=== PATIENT | female | born 1950 | race Caucasian/White ===

== ENCOUNTER → 2016-11-25 | Outpatient (CLI) | payer MEDICARE, OTHER ==
[2015-09-20 10:55] VITALS: BP 115/47
[~2016-11-25] MED LIST: CITA20TA5 PO; HYDR-963 PO; LEVO50TA5 PO; LOVA20TA2 PO
--- NOTE | 2016-11-25 10:57 | KCIC ---
INDICATION: Neck pain. Multiple injuries in the past several years. Right shoulder and arm pain for a few months. TECHNIQUE: Sagittal T1, sagittal T2, sagittal STIR, axial T2, and axial T2 gradient sequences are provided. No comparison is available. Sagittal T2 sequence was repeated for mild motion. FINDINGS: 3 mm of anterolisthesis is noted at C7-T1. There is no otherwise malalignment. There is no worrisome marrow lesion. There is a probable atypical hemangioma at T2. There is no cord signal abnormality. The cervicomedullary junction is unremarkable. There is cerebellar volume loss, nonspecific, can be associated with certain medications including seizure medications. Consider an MRI brain if further workup is required. Degenerative findings by individual level are as follows: C2-C3: There is a small central protrusion measuring 5 mm at its base in 2 to 3 mm in height. There is no canal or foraminal compromise. C3-C4: There is facet hypertrophy without high-grade canal or foraminal compromise. C4-C5: There is no canal or foraminal compromise. C5-C6: There is a central annular fissure. There is a minimal disc osteophyte complex. Uncinate process spurring and facet hypertrophy are greater on the right. There is no high-grade canal or foraminal compromise. C6-C7: There is buckling of ligamentum flavum and facet hypertrophy with mild left foraminal narrowing. C7-T1: There is 3 mm of anterolisthesis. There is facet hypertrophy which is greater on the left. There is mild left foraminal narrowing. IMPRESSION: 1. Mild degenerative changes in the cervical spine. There is no high-grade canal stenosis. Mild left foraminal narrowing at C6-C7 and C7-T1 is noted. 2. Cerebellar volume loss. This is only partially evaluated on a cervical MRI. Consider MRI brain if further workup is required. Electronically signed by: Arturo Leija MD (11/25/2016 10:54 AM) [facility]-[id number]
== END | disposition home or self-care (01) ==
LOC: KCIC MRI 08:20
PROVIDERS: ATTEND Orthopaedic Surgery
DX: M47.892 Other spondylosis, cervical region (principal); M79.601 Pain in right arm; M25.511 Pain in right shoulder
CPT/HCPCS: 72141

== ENCOUNTER → 2016-12-02 | Outpatient (CLI) | payer MEDICARE, OTHER ==
[2015-09-20 10:55] VITALS: BP 115/47
--- NOTE | 2016-12-02 09:53 | KCIC ---
Examination: CT chest without contrast HISTORY: History of productive cough, back pain COMPARISON: None available Technique: Axial CT images of the chest were performed without contrast. Coronal and sagittal reformats performed Exposure: One or more of the following individualized dose reduction techniques were utilized for this examination: 1. Automated exposure control 2. Adjustment of the mA and/or kV according to patient size 3. Use of iterative reconstruction technique FINDINGS: The visualized thyroid gland grossly appears unremarkable. The central airways are patent. Coronary artery calcifications identified. Mild emphysematous changes identified in the apical lungs. There is a 7 mm nodule identified in the right middle lobe of the lung along the fissure. Minimal right lung base atelectasis. No evidence of pleural effusion or pneumothorax. Mild superior endplate compression changes of the T6, T7 vertebral bodies. The visualized noncontrasted liver, spleen, adrenals grossly appears unremarkable. Moderate aortic atherosclerosis. IMPRESSION: 1. 7 mm solid-appearing pulmonary nodule identified in the right middle lobe of the lung. Follow-up per Fleischner Society guidelines.Follow-up CT at 6-12 months and then at 18-24 months if no change. 2. Emphysematous changes apical lungs. 3. Coronary artery calcifications. 4. Mild superior endplate compression changes of T6, T7 vertebral bodies. Electronically signed by: Heraclio Marcus MD (12/02/2016 9:50 AM) [id number]
== END | disposition home or self-care (01) ==
LOC: KCIC CT 08:11
PROVIDERS: ATTEND Family Medicine
DX: I25.10 Atherosclerotic heart disease of native coronary artery without angina pectoris (principal); I70.0 Atherosclerosis of aorta; J43.8 Other emphysema; R91.1 Solitary pulmonary nodule; R05 Cough; F17.200 Nicotine dependence, unspecified, uncomplicated
CPT/HCPCS: 71250

== ENCOUNTER → 2017-05-26 | Outpatient (CLI) | payer MEDICARE, OTHER | END | disposition home or self-care (01) | LOC: KCIC CT 09:59 | DX: J43.2 Centrilobular emphysema (principal); I25.10 Atherosclerotic heart disease of native coronary artery without angina pectoris; R91.1 Solitary pulmonary nodule; Z72.0 Tobacco use | CPT/HCPCS: 71250 ==

== ENCOUNTER 2018-09-27 07:20 | Emergency (ER) | payer MEDICARE ==
[~2018-09-27] VITALS: Ht 154.9 cm; Wt 54.4 kg
[~2018-09-27 07:20] MED LIST changes: -CITA20TA5 PO; +CITA20TA6 PO; +HYDR-3135 PO; -HYDR-963 PO
--- NOTE | 2018-09-27 08:25 | PHYS DOC ---
Past Medical History Past Medical History: Depression, High Cholesterol, Hypothyroid, Migraines, Other Additional Past Medical Histor: Borderline diabetes - diet controlled (EDDI PERRY) Past Surgical History: Hysterectomy, Tonsillectomy Additional Past Surgical Histo: "Endometriosis surgery" (EDDI PERRY) Alcohol Use: None Drug Use: None (EDDI PERRY) Adult General Chief Complaint Chief Complaint: COUGH HPI HPI Patient is a 68 year old female whom is a pack-a-day smoker for 50 years presents to the ED complaining of chest pain times one week. Patient states that the pain is worse when she wakes up and when she coughs. States she's coughing up green stuff. Describes her pain as sharp. Rates her pain as 8 out of 10. Associated symptoms include shortness of breath. Denies headache, injury, dizz iness, nausea/vomiting, abdominal pain, diarrhea, fever, rash. (EDDI PERRY) Review of Systems Review of Systems Constitutional: Denies fever or chills [] Eyes: Denies change in visual acuity, redness, or eye pain [] HENT: Denies nasal congestion or sore throat [] Respiratory: Complains of cough and shortness of breath.[] Cardiovascular: No additional information not addressed in HPI [] GI: Denies abdominal pain, nausea, vomiting, bloody stools or diarrhea [] : Denies dysuria or hematuria [] Musculoskeletal: Complains of neck pain. Denies back pain or joint pain [] Integument: Denies rash or skin lesions [] Neurologic: Denies headache, focal weakness or sensory changes [] All other systems were reviewed and found to be within normal limits, except as documented in this note. (EDDI PERRY) Current Medications Current Medications Current Medications Medications (Trade) Dose Ordered Sig/Rdaha Start Time Stop Time Status Last Admin Dose Admin Albuterol/ Ipratropium (Duoneb) 3 ml 1X ONCE 09/27/18 08:30 09/27/18 08:31 DC 09/27/18 08:38 3 ML Info (CONTRAST GIVEN -- Rx MONITORING) 1 each PRN DAILY PRN 09/27/18 10:15 09/27/18 11:22 DC Iohexol (Omnipaque 350 Mg/ml) 100 ml 1X ONCE 09/27/18 10:00 09/27/18 10:01 DC 09/27/18 10:21 100 ML Methylprednisolone Sodium Succinate (SOLU-Medrol 125MG VIAL) 125 mg 1X ONCE 09/27/18 08:30 09/27/18 08:31 DC 09/27/18 09:38 125 MG Morphine Sulfate (Morphine Sulfate) 4 mg 1X ONCE 09/27/18 10:00 09/27/18 10:01 DC 09/27/18 10:08 4 MG Ondansetron HCl (Zofran) 4 mg 1X ONCE 09/27/18 10:00 09/27/18 10:01 DC 09/27/18 10:08 4 MG (ALDO CURTIS MD) Allergies Allergies Allergies Coded Allergies Type Severity Reaction Last Updated Verified erythromycin base Adverse Reaction Intermediate Nausea and Vomiting 09/20/15 Yes (ALDO CURTIS MD) Physical Exam Physical Exam Constitutional: Well developed, well nourished, no acute distress, non-toxic appearance. [] HENT: Normocephalic, atraumatic, bilateral external ears normal, oropharynx moist, no oral exudates, nose normal. [] Eyes: PERRLA, EOMI, conjunctiva normal, no discharge. [] Neck: Normal range of motion, no tenderness, supple, no stridor. [] Cardiovascular:Heart rate regular rhythm, no murmur [] Lungs & Thorax: Mild wheezing bilaterally.[] Abdomen: Bowel sounds normal, soft, no tenderness, no masses, no pulsatile masses. [] Skin: Warm, dry, no erythema, no rash. [] Back: No tenderness, no CVA tenderness. [] Extremities: No tenderness, no cyanosis, no clubbing, ROM intact, no edema. [] Neurologic: Alert and oriented X 3, normal motor function, normal sensory function, no focal deficits noted. [] Psychologic: Affect normal, judgement normal, mood normal. [] (EDDI PERRY) Current Patient Data Vital Signs Vital Signs Date Time Temp Pulse Resp B/P (MAP) Pulse Ox O2 Delivery O2 Flow Rate FiO2 09/27/18 10:46 77 20 122/73 (89) 96 Room Air 09/27/18 07:40 98.5 98.5 (ALDO CURTIS MD) Lab Values Laboratory Tests Test 09/27/18 08:55 White Blood Count 11.4 x10^3/uL (4.0-11.0) H Red Blood Count 4.11 x10^6/uL (3.50-5.40) Hemoglobin 13.2 g/dL (12.0-15.5) Hematocrit 38.9 % (36.0-47.0) Mean Corpuscular Volume 95 fL (79-100) Mean Corpuscular Hemoglobin 32 pg (25-35) Mean Corpuscular Hemoglobin Concent 34 g/dL (31-37) Red Cell Distribution Width 13.7 % (11.5-14.5) Platelet Count 230 x10^3/uL (140-400) Neutrophils (%) (Auto) 76 % (31-73) H Lymphocytes (%) (Auto) 16 % (24-48) L Monocytes (%) (Auto) 6 % (0-9) Eosinophils (%) (Auto) 1 % (0-3) Basophils (%) (Auto) 1 % (0-3) Neutrophils # (Auto) 8.7 x10^3/uL (1.8-7.7) H Lymphocytes # (Auto) 1.8 x10^3/uL (1.0-4.8) Monocytes # (Auto) 0.7 x10^3/uL (0.0-1.1) Eosinophils # (Auto) 0.1 x10^3/uL (0.0-0.7) Basophils # (Auto) 0.1 x10^3/uL (0.0-0.2) D-Dimer (Zoie) 0.70 ug/mlFEU (0.00-0.50) H Sodium Level 139 mmol/L (136-145) Potassium Level 4.1 mmol/L (3.5-5.1) Chloride Level 103 mmol/L (98-107) Carbon Dioxide Level 25 mmol/L (21-32) Anion Gap 11 (6-14) Blood Urea Nitrogen 10 mg/dL (7-20) Creatinine 0.9 mg/dL (0.6-1.0) Estimated GFR (Cockcroft-Gault) 62.5 BUN/Creatinine Ratio 11 (6-20) Glucose Level 130 mg/dL (70-99) H Calcium Level 9.2 mg/dL (8.5-10.1) Total Bilirubin 0.3 mg/dL (0.2-1.0) Aspartate Amino Transferase (AST) 15 U/L (15-37) Alanine Aminotransferase (ALT) 12 U/L (14-59) L Alkaline Phosphatase 83 U/L (46-116) Troponin I Quantitative < 0.017 ng/mL (0.000-0.055) BB-Iam-X-Type Natriuretic Peptide 594 pg/mL (0-124) H Total Protein 8.3 g/dL (6.4-8.2) H Albumin 3.4 g/dL (3.4-5.0) Albumin/Globulin Ratio 0.7 (1.0-1.7) L Lipase 134 U/L (73-393) Thyroid Stimulating Hormone (TSH) 0.641 uIU/mL (0.358-3.74) Laboratory Tests 09/27/18 08:55 Laboratory Tests 09/27/18 08:55 (ALDO CURTIS MD) Lab Values Laboratory Tests Test 09/27/18 08:55 White Blood Count 11.4 x10^3/uL (4.0-11.0) H Red Blood Count 4.11 x10^6/uL (3.50-5.40) Hemoglobin 13.2 g/dL (12.0-15.5) Hematocrit 38.9 % (36.0-47.0) Mean Corpuscular Volume 95 fL (79-100) Mean Corpuscular Hemoglobin 32 pg (25-35) Mean Corpuscular Hemoglobin Concent 34 g/dL (31-37) Red Cell Distribution Width 13.7 % (11.5-14.5) Platelet Count 230 x10^3/uL (140-400) Neutrophils (%) (Auto) 76 % (31-73) H Lymphocytes (%) (Auto) 16 % (24-48) L Monocytes (%) (Auto) 6 % (0-9) Eosinophils (%) (Auto) 1 % (0-3) Basophils (%) (Auto) 1 % (0-3) Neutrophils # (Auto) 8.7 x10^3/uL (1.8-7.7) H Lymphocytes # (Auto) 1.8 x10^3/uL (1.0-4.8) Monocytes # (Auto) 0.7 x10^3/uL (0.0-1.1) Eosinophils # (Auto) 0.1 x10^3/uL (0.0-0.7) Basophils # (Auto) 0.1 x10^3/uL (0.0-0.2) D-Dimer (Zoie) 0.70 ug/mlFEU (0.00-0.50) H Sodium Level 139 mmol/L (136-145) Potassium Level 4.1 mmol/L (3.5-5.1) Chloride Level 103 mmol/L (98-107) Carbon Dioxide Level 25 mmol/L (21-32) Anion Gap 11 (6-14) Blood Urea Nitrogen 10 mg/dL (7-20) Creatinine 0.9 mg/dL (0.6-1.0) Estimated GFR (Cockcroft-Gault) 62.5 BUN/Creatinine Ratio 11 (6-20) Glucose Level 130 mg/dL (70-99) H Calcium Level 9.2 mg/dL (8.5-10.1) Total Bilirubin 0.3 mg/dL (0.2-1.0) Aspartate Amino Transferase (AST) 15 U/L (15-37) Alanine Aminotransferase (ALT) 12 U/L (14-59) L Alkaline Phosphatase 83 U/L (46-116) Troponin I Quantitative < 0.017 ng/mL (0.000-0.055) CL-Tky-U-Type Natriuretic Peptide 594 pg/mL (0-124) H Total Protein 8.3 g/dL (6.4-8.2) H Albumin 3.4 g/dL (3.4-5.0) Albumin/Globulin Ratio 0.7 (1.0-1.7) L Lipase 134 U/L (73-393) Thyroid Stimulating Hormone (TSH) 0.641 uIU/mL (0.358-3.74) Laboratory Tests 09/27/18 08:55 Laboratory Tests 09/27/18 08:55 (EDDI PERRY) EKG EKG []EKG shows NSR at 67 BPM. No Stemi. (EDDI PERRY) Radiology/Procedures Radiology/Procedures PROCEDURE: CERVICAL SPINE 2-3V EXAM: AP and lateral views of the cervical spine DATE: 09/27/2018 8:22 AM CLINICAL HISTORY: COMPARISON: None available. FINDINGS: On the lateral view, the cervical spine is imaged from the skull base to C7. Vertebral body heights are preserved. Decreased bone mineral density. Intervertebral disc heights are preserved. Mild facet degenerative change 5 6 and below. No spondylolisthesis. Normal predental space. No significant prevertebral soft tissue swelling. IMPRESSION: 1. No evidence for acute fracture or subluxation within the constraints of osteopenia. 2. Multilevel degenerative changes particularly of the facet joints. [] PROCEDURE: CHEST AP ONLY EXAM: AP View of the chest DATE: 09/27/2018 8:22 AM INDICATION: pain,cough and pain that radiates into chest COMPARISON: No Prior FINDINGS: The heart is not enlarged. Aortic calcifications are seen. Mediastinal and hilar contours are normal. No focal parenchymal airspace opacity. No pleural effusion or pneumothorax. IMPRESSION: Mild emphysematous change. No evidence for acute cardiopulmonary process. PROCEDURE: CT ANGIOGRAPHY CHEST CT Angio chest 09/27/2018 9:53 AM Indication: Shortness of breath. Chest pain Technique: Multiple contiguous axial images were obtained through the chest after administration of intravenous iodinated contrast. Coronal, sagittal, and 3-D MIP reformations were created. Comparison: Chest CT without contrast May 26, 2017 Findings: There is no filling defect within central pulmonary arteries or evidence of acute pulmonary embolism. Heart size is normal. No pericardial effusion is appreciated. No pathologically enlarged mediastinal lymph nodes are seen. , The thoracic aorta is grossly normal in course and contour. Centrilobular emphysema again noted. There is no pneumothorax or pleural effusion. No acute infiltrates are seen. There is a new 8 mm nodule in the left upper lobe partially obscured by artifact from dense contrast within left subclavian vein (axial image 31). Mild dependent atelectasis is seen bilaterally. Mild bronchiectasis is noted involving the lung bases. Triangular nodule along the right minor fissure is similar to comparison study, most likely an intrapulmonary lymph node. Limited visualization of the upper abdomen demonstrates no acute abnormality. Chronic appearing compression deformities of the T6 and T7 vertebra noted. No acute osseous abnormalities are appreciated. IMPRESSION: 1. No evidence of acute pulmonary embolism 2. New 8 mm noncalcified nodule, left upper lobe. Follow-up CT 3 months recommended. 3. Centrilobular emphysema and changes of COPD (EDDI PERRY) Course & Med Decision Making Course & Med Decision Making Pertinent Labs and Imaging studies reviewed. (See chart for details) []Discussed lab and imaging findings with patient. Patient's neck pain improved in the ED. States she's had much better. Patient has COPD. Patient well appearing on red-exam, states she is feeling much better. Patient's oxygen saturation in the ED is 96%. Patient is on no oxygen. Patient is not tachypneic or tachycardic. Negative CTA for PE. We'll treat outpatient with a short course of prednisone and Pro Air inhaler. Discussed follow-up with her PCP this week for reevaluation. Discussed reasons to return to the ED. Patient understands and agrees with plan. (EDDI PERRY) Course & Med Decision Making ER physician attending note: In reviewing the patient's chart, I did notice that there is no documentation that the patient was explicitly informed about the lung nodule on CT, and the need for follow-up in 3 months. I will contact the patient this morning, to ensure that she is aware of the need for repeat imaging to rule out more serious etiology of this lung nodule. (ALDO CURTIS MD) Dragon Disclaimer Dragon Disclaimer This electronic medical record was generated, in whole or in part, using a voice recognition dictation system. (EDDI PERRY) Departure Departure Impression: Primary Impression: COPD (chronic obstructive pulmonary disease) Additional Impression: Cervical pain Disposition: HOME, SELF-CARE Condition: IMPROVED Referrals: VINOD AU MD (PCP) Patient Instructions: Arthritis, Nonspecific, Chronic Obstructive Pulmonary Disease Scripts Azithromycin (AZITHROMYCIN TABLET) 250 Mg Tablet 1 PKG PO UD, #6 TAB Prov: EDDI PERRY 09/27/18 Albuterol Sulfate (Proair Hfa) 8.5 Gm Hfa.aer.ad 1 PUFF INH PRN Q6HRS PRN for SHORTNESS OF BREATH, #1 INHALER Prov: EDDI PERRY 09/27/18 Prednisone (PREDNISONE) 50 Mg Tablet 1 TAB PO DAILY for 5 Days, #5 TAB Prov: EDDI PERRY 09/27/18 Tramadol Hcl (TRAMADOL HCL) 50 Mg Tablet 50 MG PO Q4HRS PRN for PAIN, #12 TAB Prov: EDDI PERRY 09/27/18 Problem Qualifiers EDDI PERRY Sep 27, 2018 08:25 ALDO CURTIS MD Sep 28, 2018 07:25
[2018-09-27] MEDS ORDERED: methylPREDNISolone SOD SUCC PF 125 MG/2 ML VIAL. IV ONE (08:30)
[2018-09-27] MEDS ORDERED: IPRATRPIUM/ALBUTEROL 0.5/2.5MG 3 ML NEBU. NEB ONE (08:30)
--- NOTE | 2018-09-27 08:55 | RAD ---
EXAM: AP View of the chest DATE: 09/27/2018 8:22 AM INDICATION: pain,cough and pain that radiates into chest COMPARISON: No Prior FINDINGS: The heart is not enlarged. Aortic calcifications are seen. Mediastinal and hilar contours are normal. No focal parenchymal airspace opacity. No pleural effusion or pneumothorax. IMPRESSION: Mild emphysematous change. No evidence for acute cardiopulmonary process. Electronically signed by: Yadiel Jiang MD (09/27/2018 8:52 AM) [facility]
--- NOTE | 2018-09-27 08:56 | RAD ---
EXAM: AP and lateral views of the cervical spine DATE: 09/27/2018 8:22 AM CLINICAL HISTORY: COMPARISON: None available. FINDINGS: On the lateral view, the cervical spine is imaged from the skull base to C7. Vertebral body heights are preserved. Decreased bone mineral density. Intervertebral disc heights are preserved. Mild facet degenerative change 5 6 and below. No spondylolisthesis. Normal predental space. No significant prevertebral soft tissue swelling. IMPRESSION: 1. No evidence for acute fracture or subluxation within the constraints of osteopenia. 2. Multilevel degenerative changes particularly of the facet joints. Electronically signed by: Yadiel Jiang MD (09/27/2018 8:53 AM) [facility]
[2018-09-27 09:11] LABS: BASO # 0.1 x10^3/uL (0.0-0.2); BASO % 1 % (0-3); EOS # 0.1 x10^3/uL (0.0-0.7); EOS % 1 % (0-3); HEMATOCRIT 38.9 % (36.0-47.0); HEMOGLOBIN 13.2 g/dL (12.0-15.5); LYMPH # 1.8 x10^3/uL (1.0-4.8); LYMPH % 16 % (24-48); MEAN CORPUSCULAR HEMOGLOBIN 32 pg (25-35); MEAN CORPUSCULAR HGB CONC 34 g/dL (31-37); MEAN CORPUSCULAR VOLUME 95 fL (79-100); MONO # 0.7 x10^3/uL (0.0-1.1); MONO % 6 % (0-9); NEUT # 8.7 x10^3/uL (1.8-7.7); NEUT % 76 % (31-73); PLATELET COUNT 230 x10^3/uL (140-400); RED BLOOD COUNT 4.11 x10^6/uL (3.50-5.40); RED CELL DISTRIBUTION WIDTH 13.7 % (11.5-14.5); WHITE BLOOD COUNT 11.4 x10^3/uL (4.0-11.0)
[2018-09-27 09:46] LABS: CALCIUM 9.2 mg/dL (8.5-10.1); CREATININE 0.9 mg/dL (0.6-1.0); GFR 62.5; POTASSIUM 4.1 mmol/L (3.5-5.1)
[2018-09-27 09:51] LABS: ALBUMIN 3.4 g/dL (3.4-5.0); ALBUMIN/GLOBULIN RATIO 0.7 (1.0-1.7); TOTAL BILIRUBIN 0.3 mg/dL (0.2-1.0); TOTAL PROTEIN 8.3 g/dL (6.4-8.2)
[2018-09-27] MEDS ORDERED: MORPHINE SULFATE 4 MG/ML VIAL. IV ONE (10:00)
[2018-09-27] MEDS ORDERED: ONDANSETRON PF 4 MG/2 ML VIAL. IV ONE (10:00)
[2018-09-27] MEDS ORDERED: IOHEXOL 350 MG/ML 100 ML VIAL. IV ONE (10:00)
--- NOTE | 2018-09-27 10:11 | EKG ---
[facility] [address] [place] [address] Test Date: 2018-09-27 Test Time: 08:42:46 Pat Name: JOSEFINA WERNER Department: Room: Gender: F Horse Groomer: : 1950 Requested By: EDDI PERRY Order Number: [id number] Reading MD: Measurements Intervals [place] Rate: 67 P: 64 CO: 132 QRS: 51 QRSD: 84 T: 46 QT: 400 QTc: 425 Interpretive Statements SINUS RHYTHM NORMAL ECG No previous ECG available for comparison
[2018-09-27] MEDS ORDERED: CONTRAST GIVEN. MC PRN (10:15)
--- NOTE | 2018-09-27 10:40 | RAD ---
CT Angio chest 09/27/2018 9:53 AM Indication: Shortness of breath. Chest pain Technique: Multiple contiguous axial images were obtained through the chest after administration of intravenous iodinated contrast. Coronal, sagittal, and 3-D MIP reformations were created. Comparison: Chest CT without contrast May 26, 2017 Findings: There is no filling defect within central pulmonary arteries or evidence of acute pulmonary embolism. Heart size is normal. No pericardial effusion is appreciated. No pathologically enlarged mediastinal lymph nodes are seen. , The thoracic aorta is grossly normal in course and contour. Centrilobular emphysema again noted. There is no pneumothorax or pleural effusion. No acute infiltrates are seen. There is a new 8 mm nodule in the left upper lobe partially obscured by artifact from dense contrast within left subclavian vein (axial image 31). Mild dependent atelectasis is seen bilaterally. Mild bronchiectasis is noted involving the lung bases. Triangular nodule along the right minor fissure is similar to comparison study, most likely an intrapulmonary lymph node. Limited visualization of the upper abdomen demonstrates no acute abnormality. Chronic appearing compression deformities of the T6 and T7 vertebra noted. No acute osseous abnormalities are appreciated. IMPRESSION: 1. No evidence of acute pulmonary embolism 2. New 8 mm noncalcified nodule, left upper lobe. Follow-up CT 3 months recommended. 3. Centrilobular emphysema and changes of COPD CT DOSING PQRS STATEMENT: One or more of the following individualized dose reduction techniques were utilized for this examination: 1. Automated exposure control 2. Adjustment of the mA and/or kV according to patient size 3. Use of iterative reconstruction technique Electronically signed by: Ethan Hicks MD (09/27/2018 10:37 AM) [id number]
[2018-09-27 10:46] VITALS: BP 122/73
[2018-09-27] MEDS ORDERED: ALBU2.5V8 INH (10:56)
[2018-09-27] MEDS ORDERED: TRAM50TA PO (10:56)
[2018-09-27] MEDS ORDERED: PRED50TA PO (10:56)
[2018-09-27] MEDS ORDERED: AZIT250T6 PO (10:58)
== END 2018-09-27 11:06 | disposition home or self-care (01) ==
LOC: ER 07:20
DX: J44.9 Chronic obstructive pulmonary disease, unspecified (principal); M54.2 Cervicalgia; F32.9 Major depressive disorder, single episode, unspecified; E03.9 Hypothyroidism, unspecified; E78.00 Pure hypercholesterolemia, unspecified; G43.909 Migraine, unspecified, not intractable, without status migrainosus; Z90.710 Acquired absence of both cervix and uterus; Z90.89 Acquired absence of other organs; Z88.1 Allergy status to other antibiotic agents
CPT/HCPCS: 36415; 71045; 71275; 72040; 80053; 83690; 83880; 84443; 84484; 85025; 85379; 93005; 94640; 96374; 96375; 99285; J2270; J2405; J2930; J7620; Q9967

== ENCOUNTER → 2018-12-19 | Outpatient (CLI) | payer MEDICARE ==
[~2018-12-19] MED LIST changes: +ALBU2.5V8 INH; +AZIT250T6 PO; +PRED50TA PO; +TRAM50TA PO
--- NOTE | 2018-12-19 14:58 | KCIC ---
EXAM: Chest CT without intravenous contrast. HISTORY: Lung nodule follow-up. 50 pack year smoking history. TECHNIQUE: Computed tomographic images of the chest were obtained without contrast. Multiplanar reformatting was performed. *One or more of the following individualized dose reduction techniques were utilized for this examination: 1. Automated exposure control. 2. Adjustment of the mA and/or kV according to patient size. 3. Use of iterative reconstruction technique. COMPARISON: 09/27/2018, 05/26/2017, 12/02/2016. FINDINGS: There has been no change in a 6 mm nodule within the right middle lobe along the pleural fissure, allowing for differences in slice position and volume averaging. There is a 6 mm groundglass nodular opacity within the anterior left upper lobe which is decreased compared to the most recent study, favoring a postinfectious or postinflammatory etiology. There are few tiny fissural lymph nodes. There is emphysema. There is posterior dependent and basilar atelectasis. There is no infiltrate, pleural effusion or pneumothorax. The heart is normal in size. There is coronary artery and aortic atherosclerosis. No pathologically enlarged lymph node is seen. There is a mixed hypodense and hyperdense lesion within the anterior upper mid zone of the right kidney measuring 1.3 cm. There is no suspicious osseous lesion. 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 There are chronic appearing mild wedge compression fractures at T6 and T7. IMPRESSION: 1. No significant change in a 6 mm nodule within the right middle lobe along the pleural fissure, possibly a fissural lymph node. The two-year course of stability favors benignity. Continued follow-up can be performed according to Fleischner Society criteria if clinically indicated. 2. Decrease in a 6 mm groundglass opacity within the left upper lobe, likely postinfectious or postinflammatory. 3. Emphysema. 4. Stable mixed hypodense and hyperdense lesion within the anterior upper mid zone of the right kidney, possibly due to scarring with associated calcification. This difficult to assess in the absence of intravenous contrast. Electronically signed by: Lorrie Montero MD (12/19/2018 2:55 PM) [place] [id number]
== END | disposition home or self-care (01) ==
LOC: KCIC CT 10:19
PROVIDERS: ATTEND Family Medicine
DX: J43.9 Emphysema, unspecified (principal); R91.1 Solitary pulmonary nodule; J98.11 Atelectasis; I25.10 Atherosclerotic heart disease of native coronary artery without angina pectoris; M48.54XA Collapsed vertebra, not elsewhere classified, thoracic region, initial encounter for fracture; J98.4 Other disorders of lung; N28.9 Disorder of kidney and ureter, unspecified; F17.200 Nicotine dependence, unspecified, uncomplicated
CPT/HCPCS: 71250

== ENCOUNTER → 2020-01-18 | Outpatient (CLI) | payer MEDICARE ==
--- NOTE | 2020-01-18 18:07 | KCIC ---
EXAM: CT CHEST WITHOUT CONTRAST HISTORY: Low dose lung screening, smoker, COPD, history pulmonary nodule. COMPARISON: CT chest 12/19/2018, and 12/02/2016 TECHNIQUE: Helical CT of the chest performed without contrast per low dose lung cancer screening protocol. Coronal and sagittal reformats were obtained. One or more of the following individualized dose reduction techniques were utilized for this examination: 1. Automated exposure control 2. Adjustment of the mA and/or kV according to patient size 3. Use of iterative reconstruction technique. FINDINGS: Thyroid gland and thoracic inlet: Unremarkable. Heart and great vessels: Heart is normal in size. No pericardial effusion. There are coronary artery calcifications. The thoracic aorta is normal in caliber. Mild calcifications in the thoracic aorta. Mediastinum and marla: No mediastinal or hilar lymphadenopathy. Lungs and pleura: An ovoid solid 6 mm pulmonary nodule in the right middle lobe along the minor fissure is unchanged from December 2018 (image 153, series 6) this also appears unchanged from CT chest 2017 allowing for differences in slice thickness of the exam. The groundglass nodular opacity in the anterior left apex is slightly smaller, now 4 mm, previously 6 mm. A 4 mm linear nodule along the left major fissure and a few other tiny fissural nodules are unchanged. No new pulmonary nodule. Mild apical predominant centrilobular emphysema is unchanged. Mild diffuse bronchiectasis and airway wall thickening, greatest in the lower lobes, is also unchanged. Small amount of secretions in the trachea and scattered in the airways. No pleural effusion. Chest wall and axillae: Breast tissue is symmetric. There is no axillary lymphadenopathy. Upper abdomen: Unremarkable. Bones: Old compression fractures of the T6 and T7 vertebral bodies with moderate height loss are unchanged. IMPRESSION: 1. Unchanged ovoid 6 mm pulmonary nodule in the right middle lobe along the minor fissure. Lung RADS score 3, probably benign. Several other benign-appearing nodules are also unchanged. Recommend continued annual screening. 2. Unchanged mild centrilobular emphysema, bronchiectasis, and airway wall thickening. Scattered secretions in the airways. Electronically signed by: Leigha Mcgovern MD (01/18/2020 6:02 PM) [id number]
== END ==
LOC: KCIC CT 12:20
PROVIDERS: ATTEND Family Medicine
DX: Z12.2 Encounter for screening for malignant neoplasm of respiratory organs (principal); R91.1 Solitary pulmonary nodule; J47.9 Bronchiectasis, uncomplicated; I25.10 Atherosclerotic heart disease of native coronary artery without angina pectoris; I70.0 Atherosclerosis of aorta; J43.2 Centrilobular emphysema; Z87.891 Personal history of nicotine dependence
CPT/HCPCS: G0297

== ENCOUNTER → 2021-04-16 | Outpatient (CLI) | payer MEDICARE ==
--- NOTE | 2021-04-16 15:55 | KCIC ---
Bilateral digital screening 2-D and 3-D (tomosynthesis) mammogram: Reason for examination: Routine screening. There are no prior studies for comparison. This is a baseline exam. Bilateral mammograms in CC and oblique projections were obtained with 2-D imaging and 3-D tomosynthes is imaging and reviewed on the workstation. Interpretation was made with the benefit of CAD. Findings: Breast density: Category C. The breasts are heterogeneously dense, which may obscure small masses. There are no suspicious masses, malignant appearing calcifications or architectural distortion. Impression: No evidence of malignancy. ASSESSMENT: BI-RADS 1. Recommendations: Routine screening mammograms. This patient's information has been entered into a reminder system for the patient to be notified wit h the results of her examination and a target date for the next mammogram. Your patient's mammogram demonstrates that she has dense breast tissue (breast density category C or D), which could hide abnormalities, and if she has other risk factors for breast cancer that have bee n identified, she might benefit from supplemental screening tests that may be suggested by you as her ordering physician. Dense breast tissue, in and of itself, is a relatively common condition. Therefo re, this information is not provided to cause undue concern, but rather to raise your awareness and t o promote discussion with your patient regarding the presence of other risk factors, in addition to d ense breast tissue. Electronically signed by: Heidi Hardin MD (04/16/2021 3:53 PM) [id number]
--- NOTE | 2021-04-16 16:47 | KCIC ---
CT LOW DOSE LUNG SCREEN HISTORY: Lung cancer screening, smoker of 50+ yrs., 1 pk/day. COMPARISON: CT chest 01/18/2020 TECHNIQUE: Low-dose noncontrast CT scan of the chest. FINDINGS: Aorta and great vessels: No aneurysm of the aortic arch or thoracic aorta is seen. Moderate atheroscl erotic calcification. Thyroid: No significant abnormalities. Mediastinum and marla: No mediastinal masses or adenopathy is seen. Esophagus: The visualized esophagus is normal. Heart: The heart is normal in size. There is no pericardial effusion. Mild to moderate coronary arter y calcification. Airways, Lungs and Pleura: Mild centrilobular emphysema. Lower lobe predominant bronchial wall thicke herve with some inspissated secretions. Unchanged 6 mm average diameter ovoid nodule right minor fissu re (axial 158). No suspicious new or enlarging nodule. Upper abdomen: Limited evaluation of the upper abdomen is unremarkable. Osseous structures and soft tissues: New anterior wedge compression fracture of the T12 vertebral bod y with approximately 25 percent anterior height loss and approximately 2 mm retropulsion of the poste rior cortex. Redemonstrated T6 and T7 wedge compression fractures. IMPRESSION: 1. Mild emphysematous changes and bronchial wall thickening with stable pulmonary nodules measuring up to 6 mm at the minor fissure. No significant new or enlarging pulmonary nodules. 2. New wedge compression deformity of the T12 vertebral body with approximately 25 percent anterior height loss and approximately 3 mm retropulsion of the posterior cortex. 3. Mild to moderate coronary artery calcification. LUNG RADS: Category 2: Benign appearance or behavior. Follow up: Continue annual screening with LDCT in 12 months. Exposure: One or more of the following individualized dose reduction techniques were utilized for thi s examination: 1. Automated exposure control 2. Adjustment of the mA and/or kV according to patient size 3. Use of iterative reconstruction technique. Electronically signed by: David Márquez MD (04/16/2021 4:45 PM) [id number]
== END ==
LOC: KCIC CT 13:09
PROVIDERS: ATTEND Family Medicine
DX: Z12.31 Encounter for screening mammogram for malignant neoplasm of breast (principal); Z12.2 Encounter for screening for malignant neoplasm of respiratory organs; J43.2 Centrilobular emphysema; I70.0 Atherosclerosis of aorta; R91.8 Other nonspecific abnormal finding of lung field; J98.09 Other diseases of bronchus, not elsewhere classified; I25.10 Atherosclerotic heart disease of native coronary artery without angina pectoris; M48.54XA Collapsed vertebra, not elsewhere classified, thoracic region, initial encounter for fracture; F17.210 Nicotine dependence, cigarettes, uncomplicated
CPT/HCPCS: 71271; 77063; 77067